=== PATIENT | female | born 1940 | race Caucasian/White ===

== ENCOUNTER 2016-03-05 09:53 | Outpatient (CLI) | payer OTHER, MEDICAID ==
[~2016-03-05] VITALS: Ht 147.3 cm; Wt 64.7 kg
[~2016-03-05 09:53] MED LIST: INSU100C SC; LANT3I SC; OMEP20CA16 PO
[2016-03-05 10:28] VITALS: Ht 147.3 cm; Wt 64.7 kg
[2016-03-05 10:29] VITALS: BP 112/57; PULSE 93; RESP 18
--- NOTE | 2016-03-05 21:21 | PN ---
Date/Time of Note Date/Time of Note DATE: 03/05/16 TIME: 21:02 Assessment/Plan Assessment/Plan Assessment/Plan [facility] Outpatient Progress Note Date of Service: 03/05/2016 Today's Assessment & Plan: Overall stable with repeat CT Feb 2016 showing stable disease with perhaps the slightest growth in size and no new dz. Repeat TACE can potentially provide further bridge to hopefully a liver transplant. Currently in the process of evaluation. Answered all questions. With above assessment, I've recommended the following for today: 1. Continuation with liver transplant evaluation (has visit with Dr. Rosas at [facility] today and scheduled to see Dr. Marshall) 2. TACE with f/u liver CT in 3 months 3. F/u with us after above Thank you again for your great care of this very pleasant young lady and her wonderful family. If there are any questions, please feel free to call me at . TOTAL VISIT TIME: 20 minutes of which more than half was spent in [id number] discussion with the patient as well as coordination of care between multiple physicians and providers. Disclaimer: Inadvertent spelling and grammatical errors are likely due to EHR/ dictation software use and do not reflect on the quality of delivered patient care. Also, please note that the electronic time recorded on this node does not necessarily reflect the actual time of the visit. Updated Clinical Summary: A very-pleasant 74-year-old lady with past medical history significant for beyond super morbid obesity with BMI 46.7 and history of basal cell carcinoma and previous hysterectomy, who is here with signs and symptoms consistent with liver lesion which on biopsy shows to be an adenoma but also has concerning features of cirrhosis in the rest of the liver and elevated alpha-fetoprotein levels. I'm sufficiently worried about this area that I'm recommending consideration for surgical resection given the chance of hepatocellular carcinoma being the underlying etiology behind the lesion. Patient is slightly high risk for major operations, but our planned liver resection is only a partial hepatectomy of segment 6 which I believe the patient can tolerate well. Even if this area is an adenoma, this operation would reduce the risk of the area from bleeding in the future. I do not see any need for a repeat biopsy since this will not change my recommendation. Abdominal liver dedicated MRI 08/06 showed 3 lesions, one in the medial segment 7, 3.1 cm, one in medial segment 6, 3.5 cm, and one in the lateral segment 8, 1 cm, the first 2 of which were concerning for definite and probable HCC and the last one somewhat concerning for HCC. Overall, the patient had evidence for multifocal HCC and her degree of liver cirrhosis and portal hypertension (platelet count 100) made her ineligible for major surgical resection. I recommended consideration for liver transplant evaluation as well as TACE as a bridge in the meantime. S/p TACE 09/03/15 with successful right hepatic artery chemoembolization. Redirected from [facility] to [facility] transplant and met with Dr. Ashley Eng 12/03/15. Subjective: No major events or complaints; no major abd pain; no n/v/d; no sob or cp; + flatus; + BM and normal; + activity; appetite somewhat improved Objective: Vitals: See below Exam: GENERAL: On exam, the patient was sitting up in a chair and appeared to be comfortable and in no acute distress. ABDOMEN: Soft, nontender and nondistended. There are no peritoneal signs or guarding. SKIN: Skin appears to be pink and feels warm to touch. NEUROLOGIC: Patient is awake, alert, and follows commands appropriately. Exam/Review of Systems Vital Signs Vitals Vital Signs Date Time Temp Pulse Resp B/P Pulse Ox O2 Delivery O2 Flow Rate FiO2 03/05/16 10:29 98.4 93 18 112/57 96 Room Air NAKUL TALLEY M.D. Mar 05, 2016 21:13
== END 2016-03-05 16:25 | disposition home or self-care (01) ==
LOC: HPC 09:53
PROVIDERS: ATTEND Transplant Surgery
DX: K74.60 Unspecified cirrhosis of liver (principal); K76.6 Portal hypertension; E66.01 Morbid (severe) obesity due to excess calories; Z68.29 Body mass index [BMI] 29.0-29.9, adult; Z85.828 Personal history of other malignant neoplasm of skin; Z90.710 Acquired absence of both cervix and uterus
CPT/HCPCS: G0463